=== PATIENT | male | born 1990 | race Caucasian/White ===

== ENCOUNTER 2016-04-07 20:23 | Emergency (ER) ==
[2016-04-07 20:30] VITALS: BP 158/100; TEMP 99.2; BMI 21.7
--- NOTE | 2016-04-07 21:03 | CT ---
EXAM: Noncontrast CT of the cervical spine. HISTORY: Head injury. COMPARISON: None available at the time of dictation. TECHNIQUE: Noncontrast CT of the cervical spine was performed with axial, coronal and sagittal recon structions were obtained and reviewed. FINDINGS: Sagital reconstructions demonstrate no significant listhesis. Coronal reconstructions demonstrate normal AP spinal alignment. No acute cervical spinal fractures a re identified. There is preservation of the normal cervical vertebral body heights. Paravertebral so ft tissues are without paravertebral fluid collections, hematomas or masses identified on limited ev aluation. Within limitations of non myelogram CT, the central canal bony neural foramen of the cervical spine appears relatively patent. IMPRESSION: No acute fractures of the cervical spine identified.
--- NOTE | 2016-04-07 21:03 | CT ---
EXAM: CT head without contrast. HISTORY: Injury. PROCEDURE: Contiguous axial CT images of the head without contrast with coronal and sagittal reform ats. FINDINGS: The ventricles and basal cisterns are normal in size and configuration. No evidence of m ass or midline shift. No intracranial hemorrhage or evidence of large vessel infarct. No extra-axi al fluid collection. The paranasal sinuses and mastoid air cells are well-aerated. No skull fractur e. Impression: Negative CT of the head.
[2016-04-07 21:27] LABS: COCAIN SCREEN,URINE NEGATIVE (NEGATIVE)
--- NOTE | 2016-04-07 21:38 | ED.PDOC ---
General ED Provider: Dr. HERVE CHRISTIAN-ER Chief Complaint: Head Injury Stated Complaint: i ran into some pallets at work..i didnt get knocked out Time Seen by Physician: 20:30 Mode of Arrival: Walk-In Information Source: Patient Exam Limitations: No limitations Referred to ED by: PCP Nursing and Triage Documentation Reviewed and Agree: Yes Trauma/Injury Complaint Exam - Head Injury Complaint/Exam Location of Pain: Reports: Scalp Mechanism of Injury: Reports: Trauma Onset/Duration: today Symptoms Are: Still present Initial Severity: Mild Current Severity: Moderate Character: Reports: Dull Aggravating: Reports: None Alleviating: Reports: None Associated Signs and Symptoms: Denies: Confusion, Memory loss, Seizure, Epistaxis, Dental malocclusion, Neck pain, Nausea, Vomiting Loss of Consciousness: None SDH Risk Factors: Present: Male Cervical Spine Injury Risk Factors: Present: None Related Surgical History: Reports: None Head Injury Findings: Present: Normal findings Glascow Coma Scale (see protocol): 15 Focal Weakness: Present: None Focal Sensory Loss: Present: None Gait: Normal Gag Reflex Present: No Finger to Nose: Normal Babinski Sign: Negative Right, Negative Left Heel to Toe Normal: Yes Differential Diagnoses: Trauma Review of Systems - Review Of Systems Constitutional: Reports: No symptoms Eyes: Reports: No symptoms Ears, Nose, Mouth, Throat: Reports: No symptoms Respiratory: Reports: No symptoms Cardiac: Reports: No symptoms GI: Reports: No symptoms : Reports: No symptoms Musculoskeletal: Reports: No symptoms Skin: Reports: No symptoms Neurological: Reports: Headache Endocrine: Reports: No symptoms Hematologic/Lymphatic: Reports: No symptoms All Other Systems: Reviewed and Negative Past Medical History - Past Medical History Endocrine: Reports: Unknown Cardiovascular: Reports: Unknown Respiratory: Reports: Unknown Hematological: Reports: Unknown Gastrointestinal: Reports: Unknown Genitourinary: Reports: Unknown Neuro/Psych: Reports: Unknown Musculoskeletal: Reports: Unknown Cancer: Reports: Unknown - Surgical History General Surgical History: Reports: Unknown - Family History Family History: Reports: Unknown - Social History Smoking Status: Never smoker Hx Substance Use: No Alcohol Screening: Occasionally Lives: With family - Immunizations Tetanus Shot up to Date: Yes Physical Exam - Physical Exam Appearance: Well-appearing, No pain distress, Well-nourished Pain Distress: Mild Eyes: ALEXANDREA, EOMI, Conjunctiva clear ENT: Ears normal, Nose normal, Oropharynx normal Neck: Supple Respiratory: Airway patent, Breath sounds clear, Breath sounds equal, Respirations nonlabored Cardiovascular: RRR, Pulses normal, No rub, No murmur GI/: Soft, Nontender, No masses, Bowel sounds normal, No Organomegaly Musculoskeletal: Normal strength, ROM intact, No edema, No calf tenderness Skin: Warm, Dry, Normal color Neurological: Sensation intact, Motor intact, Reflexes intact, Cranial nerves intact, Alert, Oriented Psychiatric: Affect appropriate Interpretation - Radiology Interpretation Radiology Interpretation By: Radiologist Radiology Results: Negative Exam Interpreted: CT Scan Critical Care Note - Critical Care Note Total Time (mins): 0 Course - Course Orders, Labs, Meds: Lab Review 04/07/16 20:55 Urine Opiates Screen Negative Ur Oxycodone Screen Negative Urine Methadone Screen Negative Ur Propoxyphene Screen Negative Ur Barbiturates Screen Negative U Tricyclic Antidepress Negative Ur Phencyclidine Scrn Negative Ur Amphetamine Screen Negative U Methamphetamines Scrn Negative U Benzodiazepines Scrn Negative Urine Cocaine Screen Negative U Cannabinoids Screen Negative Orders Category Date Time Status URINE DRUG SCREEN (RAPID FOR ED) [DRUG SCREEN, URINE, LAB 04/07/16 20:55 Completed RAPID] Stat CT CERVICAL SPINE W/O CONTRAST Stat RADS 04/07/16 20:[address] HEAD W/O CONTRAST Stat RADS 04/07/16 20:26 Completed Vital Signs: Temp Pulse Resp BP Pulse Ox 04/07/16 20:24 99.2 F 64 16 158/100 H 98 Departure - Departure Time of Disposition: 21:39 Disposition: HOME SELF-CARE Discharge Problem: Injury of head Instructions: Head Injury (ED) Condition: Good Pt referred to PMD for follow-up: Yes Additional Instructions: motrin or tylenol for chan--f/u with pcp Allergies/Adverse Reactions: Allergies No Known Allergies Allergy (Unverified 04/07/16 20:35) Home Medications: Ambulatory Orders 1 [No Reported Medications] 04/07/16 Disposition Discussed With: Patient, Family
== END 2016-04-07 21:51 | disposition home or self-care (01) ==
LOC: ED 20:23
DX: S09.90XA Unspecified injury of head, initial encounter (principal); W22.09XA Striking against other stationary object, initial encounter; Y99.0 Civilian activity done for income or pay
CPT/HCPCS: 80306; 99283